=== PATIENT | female | born 1960 | race Caucasian/White ===

== ENCOUNTER 2016-10-13 19:51 | Emergency (ER) | payer SELFPAY ==
[~2016-10-13] VITALS: Ht 165.1 cm; Wt 92.3 kg
[~2016-10-13 19:51] MED LIST: ASPI81TA82 PO; MELO15TA2 PO; NAPR220T95 PO
[2016-10-13 19:53] VITALS: BP 147/85; PULSE 81; RESP 16; TEMP 98.8; O2SAT 95
--- NOTE | 2016-10-13 21:21 | PD ---
HPI . left ear pain worse this today Chief Complaint: ENT Complaint Time Seen by Provider: 21:21 Travel History International Travel<30 days: No Contact w/Intl Traveler<30days: No Traveled to known affect area: No History of Present Illness HPI 55-year-old female with history of recurrent ear infection for over one year here with complaints of left ear pain worsens. Patient says she's been having ear infections for over one year intermittently. She tells me that she woke up this morning and her left ear was hurting more than usual. She has some tenderness over the tragus. She denies any fever or chills. She has no other cold symptoms. She does not have a primary care provider at the moment. PFSH Past Medical History Blood Disorders: No Heart Rhythm Problems: Yes (palpitations (gallops) with low k+) Cancer: No Cardiac Catheterization: Yes (2005 NEGATIVE) Cardiovascular Problems: Yes High Cholesterol: Yes Chest Pain: Yes Congestive Heart Failure: No Diabetes: No Endocrine: No Gastrointestinal Disorders: No Genitourinary: No Headaches: Yes (MIGRAINES) Hypertension: Yes Immune Disorder: No Musculoskeletal: Yes (CHRONIC BACK PAIN) Psychiatric: No Reproductive: No Respiratory: No Migraines: Yes Myocardial Infarction: No : 5 Para: 4 Miscarriage: 0 : 1 Ovarian Cysts: Yes (13 REMOVED OR DRAINED) Past Surgical History AICD: No Appendectomy: Yes Arteriovenous Shunt: No Section: Yes (4) Coronary Artery Bypass Graft: No Eye Surgery: Yes (LASIX ON EYES 2002) Hysterectomy: Yes Insulin Pump: No Joint Replacement: No Pacemaker: No Social History Alcohol Use: No Tobacco Use: Yes (1PPD FOR 30 YEARS) Substance Use: No Allergies-Medications (Allergen,Severity, Reaction): Coded Allergies: No Known Allergies (Verified , 10/13/16) Reported Meds & Prescriptions Reported Meds & Active Scripts Active Ciprofloxacin Otic Drops 0.2% Soln 0.25 Ml LEFT EAR BID 7 Days Mobic (Meloxicam) 15 Mg Tab 15 Mg PO DAILY PRN Reported Aspir-81 (Aspirin) 81 Mg Tab 81 Mg PO DAILY Aleve (Naproxen Sodium) 220 Mg Tab 220 Mg PO BID Review of Systems General / Constitutional: No: Fever Eyes: No: Visual changes HENT: Positive: Earache, No: Headaches Cardiovascular: No: Chest Pain or Discomfort Respiratory: No: Shortness of Breath Gastrointestinal: No: Abdominal Pain Genitourinary: No: Dysuria Musculoskeletal: No: Pain Skin: No Rash Neurologic: No: Weakness Psychiatric: No: Depression Endocrine: No: Polydipsia Hematologic/Lymphatic: No: Easy Bruising Physical Exam Narrative GENERAL: AAO x 3, no acute distress, Well-nourished, well-developed patient. SKIN: Warm and dry. No visible rashes or bruising. HEAD: Normocephalic and atraumatic. EYES: No scleral icterus. No injection or drainage. EOM intact, PERRLA ENT: No nasal drainage noted. Mucous membranes pink. Airway patent. Left TM with erythema, edema, no visible purulence.TM is normal b/l NECK: Supple, trachea midline. No JVD. No lymphadenopathy. CARDIOVASCULAR: Regular rate and rhythm without murmurs, gallops, or rubs. RESPIRATORY: Breath sounds equal bilaterally. No accessory muscle use. No rhonchi or rales. GASTROINTESTINAL: Abdomen soft, non-tender, nondistended. EXTREMITIES: No cyanosis or edema. BACK: Nontender without obvious deformity. No CVA tenderness. PSYCH: AAO x 3, normal affect. Data Data Last Documented VS Vital Signs Date Time Temp Pulse Resp B/P Pulse Ox O2 Delivery O2 Flow Rate FiO2 10/13/16 19:53 98.8 81 16 147/85 95 MDM Medical Decision Making Medical Screen Exam Complete: Yes Emergency Medical Condition: Yes Medical Record Reviewed: Yes Differential Diagnosis left OE, OM, less likely mastoiditis Narrative Course 55-year-old female with history of recurrent ear infection for over one year here with complaints of left ear pain worsens. Patient says she's been having ear infections for over one year intermittently. She tells me that she woke up this morning and her left ear was hurting more than usual. She has some tenderness over the tragus. She denies any fever or chills. She has no other cold symptoms. She does not have a primary care provider at the moment. Patient seen and examined. She appears to have left otitis externa. I explained to her that she will need eardrops for this I do not recommend oral antibiotics. With her history of recurrent ear infections or recommend that she see tear down man as soon as possible. Patient verbalized understanding of instructions, questions were answered, and thanked me for their care. I advised them if their condition worsens, please return to the nearest emergency room for further care. Diagnosis Primary Impression: Otitis externa Qualified Code: H60.312 - Chronic diffuse otitis externa of left ear Patient Instructions: General Instructions Additional Instructions: Please return to emergency department if your symptoms return or worsen. Follow up with your primary care provider. Take medications as prescribed. As we discussed, you will need to see your nose and throat specialist for this recurrent ear infection. Please try to do so as soon as possible. Med/Other Pt SpecificInfo: Prescription(s) given Scripts Ciprofloxacin Otic Drops 0.2% Soln0.25 Ml LEFT EAR BID 7 Days Ref 0 Prov:Penelope Talley MD 10/13/16 Disposition: 01 DISCHARGE HOME Condition: Stable Judy Green Oct 13, 2016 21:21
[2016-10-13] MEDS ORDERED: CIPR0.2S LEFT EAR (21:25)
== END 2016-10-13 21:42 | disposition home or self-care (01) ==
LOC: PHED 19:51 → PHEFT 21:42
DX: H60.312 Diffuse otitis externa, left ear (principal); I10 Essential (primary) hypertension; E78.00 Pure hypercholesterolemia, unspecified; F17.200 Nicotine dependence, unspecified, uncomplicated; Z87.39 Personal history of other diseases of the musculoskeletal system and connective tissue; Z86.79 Personal history of other diseases of the circulatory system; Z86.69 Personal history of other diseases of the nervous system and sense organs
CPT/HCPCS: 99283

== ENCOUNTER 2017-01-13 15:42 | Observation (INO) | payer SELFPAY ==
[~2017-01-13] VITALS: Ht 165.1 cm; Wt 85.0 kg
[~2017-01-13 15:42] MED LIST changes: -ASPI81TA82 PO; +CIPR0.2S LEFT EAR; -MELO15TA2 PO; -NAPR220T95 PO
[2017-01-13 15:43] VITALS: BP 195/93; PULSE 76; RESP 16; TEMP 97.7; O2SAT 100
[2017-01-13 15:58] VITALS: O2SAT 98
[2017-01-13] MEDS ORDERED: SODIUM CHLORIDE 0.9% FLUSH 10 ML FLUSH IVF PRN (16:00)
[2017-01-13] MEDS ORDERED: SODIUM CHLORID 0.9% 500 ML INJ 500 ML IV ONE (16:00)
[2017-01-13] MEDS ORDERED: MORPHINE SULFATE 4 MG/ML INJ IV PUSH ONE (16:00)
[2017-01-13] MEDS ORDERED: ONDANSETRON HCL 4 MG/2 ML VIAL IV PUSH ONE (16:00)
[2017-01-13] MEDS ORDERED: ASPIRIN 81 MG CHEW TAB PO ONE (16:00)
[2017-01-13] MEDS ORDERED: NITROGLYCERIN 0.4 MG SL 25 TABS/BTL SL ONE (16:00)
--- NOTE | 2017-01-13 16:18 | RADRPT ---
EXAM DATE/TIME: 01/13/2017 16:10 [facility] COMPARISON: No previous studies available for comparison. INDICATIONS : Chest pain. MEDICAL HISTORY : Hypertension. Hypercholesterolemia. Smoker. SURGICAL HISTORY : Appendectomy. Cholecystectomy. Cardiac cath. ENCOUNTER: Initial ACUITY: 1 day PAIN SCORE: 7/10 LOCATION: Bilateral chest FINDINGS: The lungs are under aerated with mild prominence to the cardiac silhouette. There is no infiltrate o r failure.. Osseous structures are intact. CONCLUSION: Underated, probably negative. Humza Lopez MD FACR on January 13, 2017 at 16:15 Board Certified Radiologist. This report was verified electronically.
--- NOTE | 2017-01-13 16:20 | PD ---
HPI Chief Complaint: Chest Pain Time Seen by Provider: 15:48 Travel History International Travel<30 days: No Contact w/Intl Traveler<30days: No Traveled to known affect area: No History of Present Illness HPI The patient is a 56-year-old female who presents emergency department for chest pain. The patient states she's had intermittent chest pain for the last 2 weeks which is substernal, dull aching pressure-like, nonradiating, associated with mild shortness of breath. The patient did note one episode of nausea and vomiting at the onset of her symptoms with a small amount of hemoptysis which has resolved. The patient does have a history of CAD with previous stent placement approximately 15 years ago, however, she cannot recall the plate keeper who placed the stent. She does have a history of hypertension , hypokalemia, and CAD, but does not take any medications prescribed by physicians. She does take a baby aspirin daily as well as [id number] herbs for her cholesterol. She denies any history of diabetes, does have a history tobacco use. She denies any exertional symptoms. PFSH Past Medical History Blood Disorders: No Heart Rhythm Problems: Yes (palpitations (gallops) with low k+) Cancer: No Cardiac Catheterization: Yes (2005 NEGATIVE) Cardiovascular Problems: Yes High Cholesterol: Yes Chest Pain: Yes Congestive Heart Failure: No Diabetes: No Endocrine: No Gastrointestinal Disorders: No Genitourinary: No Headaches: Yes (MIGRAINES) Hypertension: Yes Immune Disorder: No Musculoskeletal: Yes (CHRONIC BACK PAIN) Psychiatric: No Reproductive: No Respiratory: No Migraines: Yes Myocardial Infarction: No Tetanus Vaccination: Unknown ?: Not Menopausal: Yes : 5 Para: 4 Miscarriage: 0 : 1 Ovarian Cysts: Yes (13 REMOVED OR DRAINED) Past Surgical History AICD: No Appendectomy: Yes Arteriovenous Shunt: No Section: Yes (4) Cholecystectomy: Yes Coronary Artery Bypass Graft: No Eye Surgery: Yes (LASIX ON EYES 2002) Hysterectomy: Yes Insulin Pump: No Joint Replacement: No Pacemaker: No Family History Family Myocardial Infarction: Yes Social History Alcohol Use: No Tobacco Use: Yes (1PPD FOR 30 YEARS) Substance Use: No Allergies-Medications (Allergen,Severity, Reaction): Coded Allergies: No Known Allergies (Verified , 01/13/17) Reported Meds & Prescriptions Reported Meds & Active Scripts Active Ciprofloxacin Otic Drops 0.2% Soln 0.25 Ml LEFT EAR BID 7 Days Review of Systems Except as stated in HPI: all other systems reviewed are Neg General / Constitutional: No: Fever HENT: No: Lightheadedness Cardiovascular: Positive: Chest Pain or Discomfort, No: Diaphoresis Respiratory: Positive: Shortness of Breath Gastrointestinal: Positive: Nausea, Vomiting, No: Abdominal Pain Musculoskeletal: No: Edema Neurologic: No: Dizziness Physical Exam Narrative GENERAL: Awake, alert, pleasant 56-year-old female who appears her stated age and is in no acute respiratory distress. SKIN: Focused skin assessment warm/dry. HEAD: Atraumatic. Normocephalic. EYES: Pupils equal and round. No scleral icterus. No injection or drainage. ENT: No nasal bleeding or discharge. Breath smells of tobacco. NECK: Trachea midline. No JVD. CARDIOVASCULAR: Regular rate and rhythm. No murmur appreciated. RESPIRATORY: No accessory muscle use. Clear to auscultation. Breath sounds equal bilaterally. GASTROINTESTINAL: Abdomen soft, non-tender, nondistended. No epigastric tenderness. MUSCULOSKELETAL: No obvious deformities. No clubbing. No cyanosis. No edema. NEUROLOGICAL: Awake and alert. No obvious cranial nerve deficits. Motor grossly within normal limits. Normal speech. PSYCHIATRIC: Appropriate mood and affect; insight and judgment normal. Data Data Last Documented VS Vital Signs Date Time Temp Pulse Resp B/P Pulse Ox O2 Delivery O2 Flow Rate FiO2 01/13/17 15:58 98 Room Air 01/13/17 15:56 18 01/13/17 15:43 97.7 76 195/93 Orders Electrocardiogram (01/13/17 ) Ckmb (Isoenzyme) Profile (01/13/17 15:57) Complete Blood Count With Diff (01/13/17 15:57) Comprehensive Metabolic Panel (01/13/17 15:57) Magnesium (Mg) (01/13/17 15:57) Prothrombin Time / Inr (Pt) (01/13/17 15:57) Act Partial Throm Time (Ptt) (01/13/17 15:57) Troponin I (01/13/17 15:57) Lipase (01/13/17 15:57) Chest, Single Ap (01/13/17 15:57) Ecg Monitoring (01/13/17 15:57) Bilateral Bp Monitoring (01/13/17 15:57) Iv Access Insert/Monitor (01/13/17 15:57) Oximetry (01/13/17 15:57) Oxygen Administration (01/13/17 15:57) Aspirin Chew (Aspirin Chew) (01/13/17 16:00) Morphine Inj (Morphine Inj) (01/13/17 16:00) Sodium Chloride 0.9% Flush (Ns Flush) (01/13/17 16:00) Nitroglycerin Sl (Nitrostat Sl) (01/13/17 16:00) Sodium Chlorid 0.9% 500 Ml Inj (Ns 500 M (01/13/17 16:00) Ondansetron Inj (Zofran Inj) (01/13/17 16:00) Labs Laboratory Tests Test 01/13/17 16:10 White Blood Count 10.8 TH/MM3 Red Blood Count 4.74 MIL/MM3 Hemoglobin 14.8 GM/DL Hematocrit 43.0 % Mean Corpuscular Volume 90.8 FL Mean Corpuscular Hemoglobin 31.2 PG Mean Corpuscular Hemoglobin 34.4 % Concent Red Cell Distribution Width 14.5 % Platelet Count 267 TH/MM3 Mean Platelet Volume 9.0 FL Neutrophils (%) (Auto) 60.5 % Lymphocytes (%) (Auto) 28.4 % Monocytes (%) (Auto) 7.1 % Eosinophils (%) (Auto) 3.4 % Basophils (%) (Auto) 0.6 % Neutrophils # (Auto) 6.5 TH/MM3 Lymphocytes # (Auto) 3.1 TH/MM3 Monocytes # (Auto) 0.8 TH/MM3 Eosinophils # (Auto) 0.4 TH/MM3 Basophils # (Auto) 0.1 TH/MM3 CBC Comment DIFF FINAL Differential Comment Prothrombin Time 10.3 SEC Prothromb Time International 0.9 RATIO Ratio Activated Partial 25.3 SEC Thromboplast Time Sodium Level 143 MEQ/L Potassium Level 3.7 MEQ/L Chloride Level 111 MEQ/L Carbon Dioxide Level 26.5 MEQ/L Anion Gap 6 MEQ/L Blood Urea Nitrogen 23 MG/DL Creatinine 0.78 MG/DL Estimat Glomerular Filtration 77 ML/MIN Rate Random Glucose 85 MG/DL Calcium Level 9.0 MG/DL Magnesium Level 1.9 MG/DL Total Bilirubin 0.3 MG/DL Aspartate Amino Transf 14 U/L (AST/SGOT) Alanine Aminotransferase 16 U/L (ALT/SGPT) Alkaline Phosphatase 75 U/L Total Creatine Kinase 63 U/L Troponin I LESS THAN 0.02 NG/ML Total Protein 7.1 GM/DL Albumin 3.7 GM/DL Lipase 186 U/L [facility] Medical Decision Making Medical Screen Exam Complete: Yes Emergency Medical Condition: Yes Medical Record Reviewed: Yes Interpretation(s) EKG reveals normal sinus rhythm with a rate of 61. No ischemic changes or ectopy noted. Laboratory Tests Test 01/13/17 16:10 White Blood Count 10.8 TH/MM3 Red Blood Count 4.74 MIL/MM3 Hemoglobin 14.8 GM/DL Hematocrit 43.0 % Mean Corpuscular Volume 90.8 FL Mean Corpuscular Hemoglobin 31.2 PG Mean Corpuscular Hemoglobin 34.4 % Concent Red Cell Distribution Width 14.5 % Platelet Count 267 TH/MM3 Mean Platelet Volume 9.0 FL Neutrophils (%) (Auto) 60.5 % Lymphocytes (%) (Auto) 28.4 % Monocytes (%) (Auto) 7.1 % Eosinophils (%) (Auto) 3.4 % Basophils (%) (Auto) 0.6 % Neutrophils # (Auto) 6.5 TH/MM3 Lymphocytes # (Auto) 3.1 TH/MM3 Monocytes # (Auto) 0.8 TH/MM3 Eosinophils # (Auto) 0.4 TH/MM3 Basophils # (Auto) 0.1 TH/MM3 CBC Comment DIFF FINAL Differential Comment Prothrombin Time 10.3 SEC Prothromb Time International 0.9 RATIO Ratio Activated Partial 25.3 SEC Thromboplast Time Sodium Level 143 MEQ/L Potassium Level 3.7 MEQ/L Chloride Level 111 MEQ/L Carbon Dioxide Level 26.5 MEQ/L Anion Gap 6 MEQ/L Blood Urea Nitrogen 23 MG/DL Creatinine 0.78 MG/DL Estimat Glomerular Filtration 77 ML/MIN Rate Random Glucose 85 MG/DL Calcium Level 9.0 MG/DL Magnesium Level 1.9 MG/DL Total Bilirubin 0.3 MG/DL Aspartate Amino Transf 14 U/L (AST/SGOT) Alanine Aminotransferase 16 U/L (ALT/SGPT) Alkaline Phosphatase 75 U/L Total Creatine Kinase 63 U/L Troponin I LESS THAN 0.02 NG/ML Total Protein 7.1 GM/DL Albumin 3.7 GM/DL Lipase 186 U/L Differential Diagnosis Differential diagnosis includes acute coronary syndrome, GERD, esophageal spasm , aortic dissection, pulmonary embolism, pneumonia, lung cancer, gastritis, peptic ulcer disease, pancreatitis. Narrative Course IV was established, labs are drawn and sent, and the patient was placed on cardiac telemetry monitoring and continuous pulse oximetry monitoring. EKG was ordered and interpreted. Chest x-ray was obtained. The patient received aspirin, morphine, nitroglycerin sublingual, Zofran, and IV fluids. Chest x- rays unremarkable. Initial troponin and CPK are within normal limits. Patient will be 23 hour observation to the chest pain center for serial cardiac enzymes and further evaluation by cardiology. Physician Communication Physician Communication The patient will be 23 hour observation to the chest pain center for serial cardiac enzymes and further evaluation by cardiology. Diagnosis Primary Impression: Chest pain Qualified Code: R07.9 - Chest pain, unspecified type Admitting Information Admitting Physician Requests: Observation Condition: Stable Jimy Holley MD Jan 13, 2017 16:20
[2017-01-13 16:21] LABS: AUTOMATED NEUTROPHIL # 6.5 TH/MM3 (1.8-7.7); BASOPHIL # 0.1 TH/MM3 (0-0.2); BASOPHIL % 0.6 % (0.0-2.0); EOSINOPHIL # 0.4 TH/MM3 (0-0.4); EOSINOPHIL % 3.4 % (0.0-4.0); HEMO FLAGS DIFF FINAL; LYMPH % 28.4 % (9.0-44.0); LYMPHOCYTE # 3.1 TH/MM3 (1.0-4.8); MEAN CELL VOLUME 90.8 FL (80.0-100.0); MEAN CORPUSCULAR HEMOGLOBIN 31.2 PG (27.0-34.0); MEAN CORPUSCULAR HGB CONC 34.4 % (32.0-36.0); MONO % 7.1 % (0.0-8.0); NEUT % 60.5 % (16.0-70.0); PLATELET COUNT 267 TH/MM3 (150-450); RED BLOOD COUNT 4.74 MIL/MM3 (4.00-5.30); RED CELL DISTRIBUTION WIDTH 14.5 % (11.6-17.2); WHITE BLOOD COUNT 10.8 TH/MM3 (4.0-11.0)
[2017-01-13 16:35] LABS: APTT (PATIENT) 25.3 SEC (24.3-30.1); INTERNATIONAL NORMALIZED RATIO 0.9 RATIO; PROTHROMBIN TIME - PATIENT 10.3 SEC (9.8-11.6)
[2017-01-13 16:38] LABS: ANION GAP 6 MEQ/L (5-15); AST (GOT) 14 U/L (15-37); BICARBONATE 26.5 MEQ/L (21.0-32.0); BLOOD UREA NITROGEN 23 MG/DL (7-18); CHLORIDE 111 MEQ/L (98-107); GLOMERULAR FILTRATION RATE 77 ML/MIN (>89); MAGNESIUM 1.9 MG/DL (1.5-2.5); POTASSIUM 3.7 MEQ/L (3.5-5.1); SODIUM (NA) 143 MEQ/L (136-145)
[2017-01-13 16:43] LABS: ALKALINE PHOSPHATASE 75 U/L (45-117); ALT (GPT) 16 U/L (10-53); TOTAL BILIRUBIN ADULT 0.3 MG/DL (0.2-1.0)
[2017-01-13 17:02] LABS: CREATINE KINASE 63 U/L (26-192)
[2017-01-13] MEDS ORDERED: ALUMINUM/MAGNESIUM/SIMETH 30 ML CUP PO ONE (17:30)
[2017-01-13] MEDS ORDERED: LIDOCAINE VISCOUS 2% SOLN 15 ML UDC PO ONE (17:30)
[2017-01-13] MEDS ORDERED: ONDANSETRON HCL 4 MG/2 ML VIAL IV PRN (18:30)
[2017-01-13] MEDS ORDERED: ACETAMINOPHEN 500 MG CPLT PO PRN (18:30)
[2017-01-13] MEDS ORDERED: MORPHINE SULFATE 4 MG/ML INJ IV PRN (18:30)
[2017-01-13] MEDS ORDERED: SODIUM CHLORIDE 0.9% FLUSH 10 ML FLUSH IV FLUSH PRN (18:30)
[2017-01-13] MEDS ORDERED: NITROGLYCERIN 0.4 MG SL 25 TABS/BTL SL PRN (18:30)
[2017-01-13 19:08] VITALS: BP 167/75; PULSE 71; RESP 18; O2SAT 97
[2017-01-13 20:08] VITALS: BP 168/81; PULSE 68; RESP 18; TEMP 98.6; O2SAT 96
[2017-01-13] MEDS: SODIUM CHLORIDE 0.9% FLUSH 10 ML FLUSH IV FLUSH SCH (20:23)
[2017-01-13 20:32] LABS: CREATINE KINASE 60 U/L (26-192)
[2017-01-13] MEDS: ACETAMINOPHEN/HYDROcodone 325 MG/7.5 MG TAB PO PRN (21:14)
[2017-01-13 22:58] LABS: CREATINE KINASE 47 U/L (26-192)
[2017-01-13 23:46] VITALS: BP 170/91; PULSE 64; RESP 16; TEMP 97.5; O2SAT 96
[2017-01-14] VITALS (13 sets, daily range): BP systolic 126–184; BP diastolic 68–82; PULSE 45–96; RESP 14–20; TEMP 97.7–98.2; O2SAT 93–96
[2017-01-14] MEDS: ACETAMINOPHEN/HYDROcodone 325 MG/7.5 MG TAB PO PRN ×3 (07:50→23:26)
[2017-01-14] MEDS: SODIUM CHLORIDE 0.9% FLUSH 10 ML FLUSH IV FLUSH SCH ×2 (07:50→21:07)
[2017-01-14] MEDS: ASPIRIN 325 MG TAB PO SCH (07:50)
--- NOTE | 2017-01-14 08:14 | HHI.HP ---
HPI Primary Care Physician No Primary Care Physician Chief Complaint Substernal pain History of Present Illness 56-year-old female with history of hypertension, hyperlipidemia, and current smoker presents to the emergency room for further evaluation of substernal chest pain. Onset 2 weeks ago. 2 weeks ago while eating a pot roast, states food was stuck in her chest. Describes episode as unable to breathe with severe pain until she eventually vomited. Reports vomiting 2 cups of blood followed by clear phlegm. After coughing phlegm she could breathe again. Since that time, constant substernal chest pain. Pain has never gone away completely waxing and waning in intensity. Describes discomfort as something stuck in substernal area. No dysphasia. No change in appetite. No change in bowel movements, reports chronic constipation. No history of Gerd expect during pregnancies. No particular movement or position makes pain better or worse. Does not hurt to take a deep breath. Denies similar pain in the past. Reports chronic pain takes 2 Aleve twice daily. Reports EGD 20+ years ago due to throwing up blood stating EGD was normal. Does not have coronary artery disease with previous stents placed which differs from the emergency room note. History of SVT with EP study in 2005. No recurrence of SVT since that time. Reports she was confused regarding her cardiac history when she spoke to YOSELIN López. Review of Systems General: No fatigue,weakness, fever, chills, recent illness, or change in appetite. HEENT: History of migraines, reports daily headache 6 weeks. Take Goody's powder daily. No no vision changes. no nasal congestion or drainage. CV: As stated above. No palpitations or dizziness. History of ablation-11 years ago. No personal history of coronary artery disease. RESP: No SOB, cough, wheeze, or history of asthma. GI: No nausea, vomiting, bowel changes, pain, distention, melena, or blood in the stool. Chronic constipation. No unintentional weight gain or weight loss : No dysuria, urgency, frequency, hematuria, or history of kidney stones. EXT: No lower leg edema, no paraesthesias. MS: Chronic back pain. States she can only ambulate short distances due to back pain. Takes 2 Aleve twice daily. Reports DDD and bulging disks with nerve involvement. No change in ROM NEURO: No difficulty with balance, LOC, motor/sensory deficits PSYCH: No anxiety, depression SKIN: No rashes, no concerning lesions Past Family Social History Allergies: Coded Allergies: No Known Allergies (Verified , 01/13/17) Past Medical History Hypertension, hyperlipidemia, SVT Past Surgical History Cholecystectomy, hemorrhoidectomy Reported Medications Active No Active Prescriptions or Reported Medications Red yeast rice Herbal medication for BPname unknown. Active Ordered Medications Current Medications Medications (Trade) Dose Ordered Sig/Regina Route Start Time Stop Time Status Last Admin (Tylenol) 500 mg Q4H PRN PO 01/13/17 18:30 ([place] 7.5-325 Mg) 1 tab Q4H PRN PO 01/13/17 18:30 01/14/17 07:50 (Morphine Inj) 2 mg Q4H PRN IV 01/13/17 18:30 (Zofran Inj) 4 mg Q6H PRN IV 01/13/17 18:30 (Nitrostat Sl) 0.4 mg Q5M PRN SL 01/13/17 18:30 (Aspirin) 325 mg DAILY PO 01/14/17 09:00 01/14/17 07:50 Family History Unknown. Has not spoke with family in over 20 years Social History Known hypertension and hyperlipidemia. Has not taken medication for 6 years due to lack of insurance. No known diabetes or personal coronary artery disease. Lifelong smoker 1 pack daily. Denies any alcohol or recreational drugs. Sedentary lifestyle. Unemployed, applying for disability. Past cardiac testing No recent stress testing. 12/03/05 EP study (Dr. Mcgill)-Conclusion-successful electrophysiology study, AV nodule rear-entry tachycardia, mapping and radiofrequency ablation. 11/30/05 [id number]-[id number]-Cr pericardial effusion. LV function sustained, EF 65%. Trivial tricuspid encourage rotation 12/11/06 Lexiscanno evidence of stress-induced ischemia. Ejection fraction 75%. Physical Exam Vital Signs Vital Signs Date Time Temp Pulse Resp B/P Pulse Ox O2 Delivery O2 Flow Rate FiO2 01/14/17 08:11 97.8 60 18 164/80 95 01/14/17 08:00 49 01/14/17 03:56 97.7 55 16 155/68 93 01/14/17 02:00 94 21 01/13/17 23:46 97.5 64 16 170/91 96 01/13/17 20:08 98.6 68 18 168/81 96 01/13/17 19:08 71 18 167/75 97 Room Air 01/13/17 16:20 18 01/13/17 16:15 18 01/13/17 15:58 98 Room Air 01/13/17 15:56 18 99 01/13/17 15:43 97.7 76 16 195/93 100 Physical Exam GENERAL: Alert WN, WD, NAD, pleasant, female who appears older than stated age HEAD: NC, AT EYES: Sclera clear, conjunctiva without injection, pupils equal and round ENT: Mucous membranes pink and moist, no nasal discharge or bleeding NECK: Supple, no masses, trachea midline CV: Regular bradycardic rate, without murmur, rub, gallop, no JVD, S1-S2 no S3- S4. No carotid or femoral bruits. RESP: Clear lungs throughout bilateral, no crackles, wheeze, rhonchi, symmetrical chest rise, nonlabored, able to speak in full sentences ABD: Soft, NT, ND, no masses, positive bowel tones, negative Kidd's sign BACK: No CVAT, no scoliosis EXT: Pulses +24, no dependent edema MS: Normal tone 4 extremities, nontender, no obvious deformities, full range of motion NEURO: CN II through CN XII grossly intact, motor strength 5/5, gait WNL PSYCH: A+O 3, pleasant affect, appropriate speech, appropriate mood and affect , insight and judgment SKIN: Normal turgor, normal texture, no lesions, no rashes, brisk cap refill, even hair distribution Laboratory Laboratory Tests Test 01/13/17 01/13/17 01/13/17 16:10 19:37 22:22 White Blood Count 10.8 Red Blood Count 4.74 Hemoglobin 14.8 Hematocrit 43.0 Mean Corpuscular Volume 90.8 Mean Corpuscular Hemoglobin 31.2 Mean Corpuscular Hemoglobin 34.4 Concent Red Cell Distribution Width 14.5 Platelet Count 267 Mean Platelet Volume 9.0 Neutrophils (%) (Auto) 60.5 Lymphocytes (%) (Auto) 28.4 Monocytes (%) (Auto) 7.1 Eosinophils (%) (Auto) 3.4 Basophils (%) (Auto) 0.6 Neutrophils # (Auto) 6.5 Lymphocytes # (Auto) 3.1 Monocytes # (Auto) 0.8 Eosinophils # (Auto) 0.4 Basophils # (Auto) 0.1 CBC Comment DIFF FINAL Differential Comment Prothrombin Time 10.3 Prothromb Time International 0.9 Ratio Activated Partial 25.3 Thromboplast Time Sodium Level 143 Potassium Level 3.7 Chloride Level 111 Carbon Dioxide Level 26.5 Anion Gap 6 Blood Urea Nitrogen 23 Creatinine 0.78 Estimat Glomerular Filtration 77 Rate Random Glucose 85 Calcium Level 9.0 Magnesium Level 1.9 Total Bilirubin 0.3 Aspartate Amino Transf 14 (AST/SGOT) Alanine Aminotransferase 16 (ALT/SGPT) Alkaline Phosphatase 75 Total Creatine Kinase 63 60 47 Troponin I LESS THAN 0.02 LESS THAN 0.02 LESS THAN 0.02 Total Protein 7.1 Albumin 3.7 Lipase 186 Result Diagram: 01/13/17 1610 01/13/17 1610 Imaging Last Impressions Chest X-Ray 01/13/17 1557 Signed Impressions: Service Date/Time: Friday, January 13, 2017 16:10 - CONCLUSION: Underated, probably negative. Humza Lopez MD FACR Course EKGs Normal sinus bradycardia, normal axis, no ST or T-segment changes Assessment and Plan Assessment and Plan #1 Chest painadmitted to chest pain center. Ruled out with 3 sets of EKGs, cardiac enzymes, and monitored overnight. Seen and evaluated by Dr. Kelvin Turk. Chest discomfort atypical likely GI. Will consult GI for further evaluation. No further cardiac testing required. #2 Hypertensionlisinopril 10 mg daily. Discussed importance of tight blood pressure control, following a low sodium diet, and medication compliance. Establish with a primary care provider for follow-up. #3 Hyperlipidemia-discussed in length importance of cholesterol management. Once established with a PCP follow-up with a lipid panel. #4 Tobacco use-strongly encouraged and stressed importance of tobacco sensation. Discussed and counseled patient to quit smoking. #5 GERDconsult GI for further recommendation and possible EGD. GI cocktail provided emergency room. Education provided on terminologist use of NSAIDs and possible ill effects on stomach. #6 Chronic headaches/migrainescontinue pain medications initiated in emergency room. Once again patient encouraged to establish with a primary care provider for her chronic medical needs. Case management consult placed for possible admittance to [facility] for preventative care and medical management. Etelvina Nixon Jan 14, 2017 08:14 Etelvina Nixon Jan 14, 2017 08:14
--- NOTE | 2017-01-14 09:35 | PD.CONS ---
HPI History of Present Illness This is a 56 year old female patient complaining of two weeks of epigastric pain , moderately severe, pressure like, without radiation. No assiciated SOB or chills. Started with dysphagia for meat that she vomited along with some blood. Reports regular mild dysphagia for solid food. No heartburn. Had EGD in recent years no diagnosis. History of CAD with stent but troponins are negative and symptoms are unlike her cardiac sx. ROS: headaches, no rash, no sore throat, no earache. No fevers, no diarrhea. Constipation. No leg pains but has cold legs always cold. Otherwise complete ros is negative.[]. PFSH Past Medical History CAD Stent 11 years ago. Colonoscopy 3 years ago normal Past Surgical History cholecystectomy 2 years ago terrible pain. Unlike symptoms currently Appy Coded Allergies: No Known Allergies (Verified , 01/13/17) Medications Current Medications Medications (Trade) Dose Ordered Sig/Regina Route Start Time Stop Time Status Last Admin (NS Flush) 2 ml UNSCH PRN IV FLUSH 01/13/17 18:30 (NS Flush) 2 ml BID IV FLUSH 01/13/17 21:00 01/14/17 07:50 (Tylenol) 500 mg Q4H PRN PO 01/13/17 18:30 (Randolph 7.5-325 Mg) 1 tab Q4H PRN PO 01/13/17 18:30 01/14/17 07:50 (Morphine Inj) 2 mg Q4H PRN IV 01/13/17 18:30 (Zofran Inj) 4 mg Q6H PRN IV 01/13/17 18:30 (Nitrostat Sl) 0.4 mg Q5M PRN SL 01/13/17 18:30 (Aspirin) 325 mg DAILY PO 01/14/17 09:00 01/14/17 07:50 Family History CAD Social History Smokes 1 PPD. No alcohol or drugs GI Exam Vitals I&O Vital Signs Date Time Temp Pulse Resp B/P Pulse Ox O2 Delivery O2 Flow Rate FiO2 01/14/17 08:11 97.8 60 18 164/80 95 01/14/17 08:00 49 01/14/17 07:54 94 21 01/14/17 03:56 97.7 55 16 155/68 93 01/14/17 02:00 94 21 01/13/17 23:46 97.5 64 16 170/91 96 01/13/17 20:08 98.6 68 18 168/81 96 01/13/17 19:08 71 18 167/75 97 Room Air 01/13/17 16:20 18 01/13/17 16:15 18 01/13/17 15:58 98 Room Air 01/13/17 15:56 18 99 01/13/17 15:43 97.7 76 16 195/93 100 Laboratory Test 01/13/17 01/13/17 01/13/17 16:10 19:37 22:22 White Blood Count 10.8 TH/MM3 Red Blood Count 4.74 MIL/MM3 Hemoglobin 14.8 GM/DL Hematocrit 43.0 % Mean Corpuscular Volume 90.8 FL Mean Corpuscular Hemoglobin 31.2 PG Mean Corpuscular Hemoglobin 34.4 % Concent Red Cell Distribution Width 14.5 % Platelet Count 267 TH/MM3 Mean Platelet Volume 9.0 FL Neutrophils (%) (Auto) 60.5 % Lymphocytes (%) (Auto) 28.4 % Monocytes (%) (Auto) 7.1 % Eosinophils (%) (Auto) 3.4 % Basophils (%) (Auto) 0.6 % Neutrophils # (Auto) 6.5 TH/MM3 Lymphocytes # (Auto) 3.1 TH/MM3 Monocytes # (Auto) 0.8 TH/MM3 Eosinophils # (Auto) 0.4 TH/MM3 Basophils # (Auto) 0.1 TH/MM3 CBC Comment DIFF FINAL Differential Comment Prothrombin Time 10.3 SEC Prothromb Time International 0.9 RATIO Ratio Activated Partial 25.3 SEC Thromboplast Time Sodium Level 143 MEQ/L Potassium Level 3.7 MEQ/L Chloride Level 111 MEQ/L Carbon Dioxide Level 26.5 MEQ/L Anion Gap 6 MEQ/L Blood Urea Nitrogen 23 MG/DL Creatinine 0.78 MG/DL Estimat Glomerular Filtration 77 ML/MIN Rate Random Glucose 85 MG/DL Calcium Level 9.0 MG/DL Magnesium Level 1.9 MG/DL Total Bilirubin 0.3 MG/DL Aspartate Amino Transf 14 U/L (AST/SGOT) Alanine Aminotransferase 16 U/L (ALT/SGPT) Alkaline Phosphatase 75 U/L Total Creatine Kinase 63 U/L 60 U/L 47 U/L Troponin I LESS THAN 0.02 LESS THAN 0.02 LESS THAN 0.02 NG/ML NG/ML NG/ML Total Protein 7.1 GM/DL Albumin 3.7 GM/DL Lipase 186 U/L Physical Examination HEENT: Pupils round and reactive to light; normocephalic; atraumatic; no jaundice. Throat is clear. NECK: Neck is supple, no JVD, no lymphadenopathy. CHEST: Chest is clear to auscultation and percussion. CARDIAC: Regular rate and rhythm with no murmur gallop or rubs. ABDOMEN: Soft, nondistended, nontender; no hepatosplenomegaly; bowel sounds are present in all four quadrants. EXTREMITIES: No clubbing, cyanosis, or edema. SKIN: Normal; no rash; no jaundice. GARNETT MACHINE OPERATOR: No focal deficits; alert and oriented times three. Assessment and Plan Plan Impression: GERD with dysphagia Plan: EGD with possible dilatation tomorrow PPI protonix 40 IV bid Full liquid diet today NPO after midnight He Ball MD Jan 14, 2017 09:35
[2017-01-14] MEDS: LISINOPRIL 10 MG TAB PO SCH (11:17)
[2017-01-14] MEDS: PANTOPRAZOLE SODIUM 40 MG VIAL IV PUSH SCH ×2 (11:17→21:07)
[2017-01-14] MEDS ORDERED: cloNIDine HCL 0.1 MG TAB PO PRN (15:00)
[2017-01-15] VITALS (7 sets, daily range): BP systolic 140–160; BP diastolic 77–88; PULSE 48–55; RESP 16–20; TEMP 98–98.6; O2SAT 93–97
--- NOTE | 2017-01-15 07:28 | EKG ---
Date Performed: 01/13/2017 Time Performed: 22:04:44 PTAGE: 56 years EKG: SINUS BRADYCARDIA BORDERLINE ECG PREVIOUS TRACING : 01/13/2017 19.14 Since previous tracing, no significant change noted DOCTOR: Kelvin Turk Interpretating Date/Time 01/15/2017 07:26:52
--- NOTE | 2017-01-15 07:29 | EKG ---
Date Performed: 01/13/2017 Time Performed: 19:14:24 PTAGE: 56 years EKG: SINUS BRADYCARDIA WITH SINUS ARRHYTHMIA BORDERLINE ECG PREVIOUS TRACING : 01/13/2017 15.58 Since previous tracing, no significant change noted DOCTOR: Kelvin Turk Interpretating Date/Time 01/15/2017 07:27:56
--- NOTE | 2017-01-15 07:30 | EKG ---
Date Performed: 01/13/2017 Time Performed: 15:58:27 PTAGE: 56 years EKG: Sinus rhythm NORMAL ECG PREVIOUS TRACING : 05/05/2009 11.12 Since previous tracing, no significant change noted DOCTOR: Kelvin Turk Interpretating Date/Time 01/15/2017 07:28:18
[2017-01-15] MEDS: LISINOPRIL 10 MG TAB PO SCH (08:07)
[2017-01-15] MEDS: PANTOPRAZOLE SODIUM 40 MG VIAL IV PUSH SCH (08:08)
[2017-01-15] MEDS: ACETAMINOPHEN/HYDROcodone 325 MG/7.5 MG TAB PO PRN (08:08)
[2017-01-15] MEDS: ASPIRIN 325 MG TAB PO SCH (08:11)
[2017-01-15] MEDS: SODIUM CHLORIDE 0.9% FLUSH 10 ML FLUSH IV FLUSH SCH (08:12)
--- NOTE | 2017-01-15 09:12 | PD.CARD.PN ---
Subjective Subjective Remarks Continues to complain of substernal discomfort described as "something stuck in my chest." No complaints overnight, tolerated clears. No issues overnight per nursing. Objective Vital Signs / I&O Vital Signs Date Time Temp Pulse Resp B/P Pulse Ox O2 Delivery O2 Flow Rate FiO2 01/15/17 07:30 98.0 55 20 151/88 97 01/15/17 07:13 94 21 01/15/17 04:19 48 01/15/17 04:11 98.5 54 20 140/82 94 01/15/17 00:12 48 01/14/17 23:16 97.7 52 20 157/80 93 01/14/17 20:04 52 01/14/17 19:43 97.8 57 16 126/79 93 01/14/17 19:40 95 01/14/17 15:50 98.2 63 18 158/76 96 01/14/17 14:53 151/78 01/14/17 13:00 97.7 96 14 184/82 96 01/14/17 12:00 45 I/O 01/14/17 01/14/17 01/14/17 01/15/17 01/15/17 01/15/17 07:00 15:00 23:00 07:00 15:00 23:00 Intake Total 1280 ml Output Total 800 ml Balance 480 ml Intake Oral 1280 ml Output Urine Total 800 ml Physical Exam Gen: A+Ox3, NAD CV: RRR, w/o murmur S1, S2 Resp: clear lungs throughout, non-labored Abd: soft, NT, +bs Neuro: gait normal Assessment and Plan Assessment and Plan EGD scheduled this am. Further disposition to follow recommendations from Etelvina Jackson Jan 15, 2017 09:12
[2017-01-15] MEDS ORDERED: LACTATED RINGER'S 1,000 ML BAG IV ONE (09:45)
[2017-01-15] MEDS ORDERED: PROPOFOL 200 MG/20 ML AMP IV ONE (10:06)
--- NOTE | 2017-01-15 10:36 | HHI.GIFU ---
Subjective Remarks Immediate postop note: EGD with esophageal dilatation over guidewire Indication: Chest pain, dysphagia Meds: MAC Findings; Esophagus apparent distal stricture. Dilated to 15mm and 16mm. Savary Relook showed dilated distal stricture. No apparent complication Stomach: normal Duodenum: normal Objective Vitals I&O Vital Signs Date Time Temp Pulse Resp B/P Pulse Ox O2 Delivery O2 Flow Rate FiO2 01/15/17 09:40 98.0 55 20 151/88 97 01/15/17 09:08 18 01/15/17 07:30 98.0 55 20 151/88 97 01/15/17 07:13 94 21 01/15/17 04:19 48 01/15/17 04:11 98.5 54 20 140/82 94 01/15/17 00:12 48 01/14/17 23:16 97.7 52 20 157/80 93 01/14/17 20:04 52 01/14/17 19:43 97.8 57 16 126/79 93 01/14/17 19:40 95 01/14/17 15:50 98.2 63 18 158/76 96 01/14/17 14:53 151/78 01/14/17 13:00 97.7 96 14 184/82 96 01/14/17 12:00 45 I/O 01/14/17 01/14/17 01/14/17 01/15/17 01/15/17 01/15/17 07:00 15:00 23:00 07:00 15:00 23:00 Intake Total 1280 ml Output Total 800 ml Balance 480 ml Intake Oral 1280 ml Output Urine Total 800 ml Physical Exam HEENT: Pupils round and reactive to light; normocephalic; atraumatic; no jaundice. Throat is clear. NECK: Neck is supple, no JVD, no lymphadenopathy. CHEST: Chest is clear to auscultation and percussion. CARDIAC: Regular rate and rhythm with no murmur gallop or rubs. ABDOMEN: Soft, nondistended, nontender; no hepatosplenomegaly; bowel sounds are present in all four quadrants. EXTREMITIES: No clubbing, cyanosis, or edema. SKIN: Normal; no rash; no jaundice. PROMOTION SPECIALIST: No focal deficits; alert and oriented times three. Assessment and Plan Plan Impression: GERD with dysphagia - EGD and dilatation over guidewire to 16mm shows distal stricture. No complication. Gerd present. Plan: Advance to regular diet. PPI Daily Protonix 40mg daily Followup in [facility] office in 2 weeks. Needs repeat EGD with further dilatation to 17,18mm and biopsy distal esophagus. Stable for discharge today. He Ball MD Jan 15, 2017 10:36
[2017-01-15] MEDS ORDERED: PROT40TA PO (11:43)
--- NOTE | 2017-01-15 11:44 | HHI.DCPOC ---
Discharge Care Plan Diagnosis: (1) Esophageal dilatation (2) GERD (gastroesophageal reflux disease) (3) Hypertension (4) Tobacco abuse Goals to Promote Your Health * To prevent worsening of your condition and complications * To maintain your health at the optimal level Directions to Meet Your Goals Take your medications as prescribed Follow your dietary instruction Follow activity as directed Keep your appointments as scheduled Take your immunizations and boosters as scheduled If your symptoms worsen call your PCP, if no PCP go to Urgent Care Center or Emergency Room Smoking is Dangerous to Your Health. Avoid second hand smoke Call the 24-hour hour crisis hotline for domestic abuse at Etelvina Nixon [facility] Jan 15, 2017 11:44
[2017-01-15] MEDS ORDERED: LISI10TA3 PO (11:51)
--- NOTE | 2017-01-15 12:47 | MR ---
cc: KELVIN TURK MD, HAROLD H. MD DATE OF PROCEDURE 01/15/2017 PROCEDURE Esophagogastroduodenoscopy with esophageal dilatation over guidewire. INDICATION Chest pain and dysphagia. REQUESTING PHYSICIAN Referred by Kelvin Turk MD PROCEDURE After informed consent was obtained, the patient was placed in the left side down position. She was sedated by the anesthesia service. After adequate sedation was achieved, the Pentax video gastroscope was inserted in the oropharynx and advanced through the esophagus, stomach and duodenum. It was then slowly withdrawn examining the mucosal surfaces carefully. A retroflex examination was performed in the fundus and cardia. The scope was then straightened and a guidewire was left in place as the scope was slowly withdrawn. Over the guidewire a 15-mm Savary dilator was passed down through the esophagus into the stomach. It was then removed and a 16-mm dilator was passed down through the esophagus into the stomach. The dilator and guidewire were then removed together. A re-look examination was then performed showing that the distal stricture had been dilated. There was minimal blood present. There was no apparent complication. The scope was then withdrawn and the procedure was terminated. She tolerated the procedure well and was returned to the recovery area in good condition. FINDINGS 1. The esophagus showed an apparent distal stricture. This was dilated to 15 and 16-mm with Savary dilators. A re-look examination showed a dilated distal stricture without any apparent complication. 2. The stomach was normal. 3. The duodenum was normal. IMPRESSION 1. Gastroesophageal reflux disease. 2. Distal esophageal stricture dilated to 16-mm. RECOMMENDATIONS 1. The patient should take Protonix 40 mg daily and should follow up in the office at 2 weeks. 2. She can have a regular diet. She should continue to chew her food well. 3. She may be discharged to home at this point. He Ball MD [facility] /11:34 AM /12:41 PM
== END 2017-01-15 13:36 | disposition home or self-care (01) ==
LOC: NEPE 15:42 → NEDA 17:25 → UNDODISOB 17:28 → NEPFCDU 19:59
PROVIDERS: ADMIT Internal Medicine Cardiovascular Disease; ATTEND Internal Medicine Cardiovascular Disease
DX: R07.89 Other chest pain (principal); R13.10 Dysphagia, unspecified; K22.2 Esophageal obstruction; R06.02 Shortness of breath; R00.1 Bradycardia, unspecified; K92.0 Hematemesis; I25.10 Atherosclerotic heart disease of native coronary artery without angina pectoris; I10 Essential (primary) hypertension; I49.8 Other specified cardiac arrhythmias; E78.5 Hyperlipidemia, unspecified; E78.00 Pure hypercholesterolemia, unspecified; K21.9 Gastro-esophageal reflux disease without esophagitis; G43.909 Migraine, unspecified, not intractable, without status migrainosus; G89.29 Other chronic pain; F17.200 Nicotine dependence, unspecified, uncomplicated; Z79.899 Other long term (current) drug therapy; Z95.5 Presence of coronary angioplasty implant and graft
CPT/HCPCS: 00740; 43248; 71010; 80053; 82550; 83690; 83735; 84484; 85025; 85610; 85730; 93005; 96361; 96374; 96375; 99285; C1769; C9113; G0378; J2270; J2405; J7040; J7120

== ENCOUNTER 2017-04-10 09:57 | Observation (INO) | payer MEDICARE ==
[2017-04-10] VITALS (11 sets, daily range): BP systolic 131–172; BP diastolic 72–94; PULSE 61–78; RESP 12–22; TEMP 97.9–99; O2SAT 97–100
[~2017-04-10] VITALS: Ht 165.1 cm; Wt 93.0 kg
[~2017-04-10 09:57] MED LIST changes: -CIPR0.2S LEFT EAR; +LISI10TA3 PO; +PROT40TA PO
[2017-04-10] MEDS ORDERED: RED1CAP4 PO (10:40)
[2017-04-10] MEDS ORDERED: COQ-30CA2 PO (10:40)
[2017-04-10] MEDS ORDERED: ASPI1POW6 PO (10:40)
[2017-04-10] MEDS ORDERED: SODIUM CHLORIDE 0.9% FLUSH 10 ML FLUSH IVF PRN (11:00)
--- NOTE | 2017-04-10 11:15 | PD ---
HPI Chief Complaint: Chest Pain Time Seen by Provider: 11:08 Travel History International Travel<30 days: No Contact w/Intl Traveler<30days: No Traveled to known affect area: No History of Present Illness HPI 56-year-old female presents to the emergency department for evaluation of chest pain. The chest pain started last night when she was having a disagreement with her children. She said after the disagreement she went to bed thinking it would resolve but when she woke up this morning and still had chest pain she decided to come in to the emergency department to get evaluated. Patient has a history of hypertension and hyperlipidemia, but denies any history of angina or [place]. Patient states the pain is chronic in nature, not reproducible to palpation and radiates down her right arm. Patient states she is slightly short of breath. Patient denies fever, chills, malaise, nausea, vomiting, abdominal pain or lightheadedness. Patient does not have any family history of heart disease. PFSH Past Medical History Blood Disorders: No Anxiety: Yes Depression: Yes Heart Rhythm Problems: Yes (palpitations (gallops) with low k+) Cancer: No Cardiac Catheterization: Yes (2005 NEGATIVE) Cardiovascular Problems: Yes High Cholesterol: Yes Chest Pain: Yes Congestive Heart Failure: No Diabetes: No Diminished Hearing: No Endocrine: No Gastrointestinal Disorders: No GERD: Yes Genitourinary: No Headaches: Yes (MIGRAINES) Hypertension: Yes Immune Disorder: No Musculoskeletal: Yes (CHRONIC BACK PAIN) Psychiatric: Yes Reproductive: No Respiratory: No Migraines: Yes Myocardial Infarction: No ?: Not Menopausal: Yes : 5 Para: 4 Miscarriage: 0 : 1 Ovarian Cysts: Yes (13 REMOVED OR DRAINED) Past Surgical History AICD: No Appendectomy: Yes Arteriovenous Shunt: No Section: Yes (4) Cholecystectomy: Yes Coronary Artery Bypass Graft: No Eye Surgery: Yes (LASIX ON EYES 2002) Hysterectomy: Yes Insulin Pump: No Joint Replacement: No Pacemaker: No Family History Family Myocardial Infarction: Yes Social History Alcohol Use: Yes ("VERY LITTLE") Tobacco Use: Yes (1PPD FOR 30 YEARS) Substance Use: No Allergies-Medications (Allergen,Severity, Reaction): Coded Allergies: No Known Allergies (Verified , 04/10/17) Reported Meds & Prescriptions Reported Meds & Active Scripts Active Lisinopril 10 Mg Tab 10 Mg PO DAILY Reported Goodys Extra Strength Powder (Bxhjhnt-Wywztxqskurhh-Qjbdahal Powder) 260-520- 32.5 Mg Powderpack 1 Pkt PO DIRECTED PRN Coq-10 (Coenzyme Q10 (Ubidecarenone)) 30 Mg Cap 20 Mg PO BID Red Yeast Rice (Red Yeast Rice Extract) 600 Mg Cap 600 Mg PO BID Review of Systems Except as stated in HPI: all other systems reviewed are Neg Physical Exam Narrative GENERAL: Well-nourished well-developed 56-year-old female in no acute distress SKIN: Focused skin assessment warm/dry. HEAD: Atraumatic. Normocephalic. EYES: Pupils equal and round. No scleral icterus. No injection or drainage. ENT: No nasal bleeding or discharge. Mucous membranes pink and moist. NECK: Trachea midline. No JVD. CARDIOVASCULAR: Regular rate and rhythm. No murmur appreciated. RESPIRATORY: No accessory muscle use. Clear to auscultation. Breath sounds equal bilaterally. GASTROINTESTINAL: Abdomen soft, non-tender, nondistended. Hepatic and splenic margins not palpable. MUSCULOSKELETAL: No obvious deformities. No clubbing. No cyanosis. No edema. NEUROLOGICAL: Awake and alert. No obvious cranial nerve deficits. Motor grossly within normal limits. Normal speech. PSYCHIATRIC: Appropriate mood and affect; insight and judgment normal. Data Data Last Documented VS Vital Signs Date Time Temp Pulse Resp B/P (MAP) Pulse Ox O2 Delivery O2 Flow Rate FiO2 04/10/17 11:21 70 141/72 (95) 140/74 (96) 04/10/17 10:55 100 Nasal Cannula 2.00 04/10/17 10:41 12 04/10/17 09:58 99.0 Orders Orders Electrocardiogram (04/10/17 10:52) Basic Metabolic Panel (Bmp) (04/10/17 10:52) Ckmb (Isoenzyme) Profile (04/10/17 10:52) Complete Blood Count With Diff (04/10/17 10:52) Magnesium (Mg) (04/10/17 10:52) Prothrombin Time / Inr (Pt) (04/10/17 10:52) Act Partial Throm Time (Ptt) (04/10/17 10:52) Troponin I (04/10/17 10:52) Chest, Single Ap (04/10/17 10:52) Ecg Monitoring (04/10/17 10:52) Bilateral Bp Monitoring (04/10/17 10:52) Iv Access Insert/Monitor (04/10/17 10:52) Oximetry (04/10/17 10:52) Oxygen Administration (04/10/17 10:52) Sodium Chloride 0.9% Flush (Ns Flush) (04/10/17 11:00) Admit Order (Ed Use Only) (04/10/17 12:30) Labs Laboratory Tests Test 04/10/17 10:50 White Blood Count 13.4 TH/MM3 Red Blood Count 4.79 MIL/MM3 Hemoglobin 14.3 GM/DL Hematocrit 43.3 % Mean Corpuscular Volume 90.4 FL Mean Corpuscular Hemoglobin 29.8 PG Mean Corpuscular Hemoglobin Concent 33.0 % Red Cell Distribution Width 13.5 % Platelet Count 291 TH/MM3 Mean Platelet Volume 9.1 FL Neutrophils (%) (Auto) 56.7 % Lymphocytes (%) (Auto) 19.7 % Monocytes (%) (Auto) 5.5 % Eosinophils (%) (Auto) 17.7 % Basophils (%) (Auto) 0.4 % Neutrophils # (Auto) 7.6 TH/MM3 Lymphocytes # (Auto) 2.6 TH/MM3 Monocytes # (Auto) 0.7 TH/MM3 Eosinophils # (Auto) 2.4 TH/MM3 Basophils # (Auto) 0.0 TH/MM3 CBC Comment DIFF FINAL Differential Comment Prothrombin Time 10.6 SEC Prothromb Time International Ratio 1.0 RATIO Activated Partial Thromboplast Time 25.6 SEC Blood Urea Nitrogen 12 MG/DL Creatinine 0.65 MG/DL Random Glucose 83 MG/DL Calcium Level 8.3 MG/DL Magnesium Level 2.1 MG/DL Sodium Level 142 MEQ/L Potassium Level 3.6 MEQ/L Chloride Level 110 MEQ/L Carbon Dioxide Level 26.4 MEQ/L Anion Gap 6 MEQ/L Estimat Glomerular Filtration Rate 95 ML/MIN Total Creatine Kinase 53 U/L Troponin I LESS THAN 0.02 NG/ML MDM Medical Decision Making Medical Screen Exam Complete: Yes Emergency Medical Condition: Yes Medical Record Reviewed: Yes Differential Diagnosis Differential diagnoses include but are not limited to [place], PE, anxiety, angina Narrative Course 56-year-old female presents to the emergency department for evaluation of chest pain that started last night. Patient was having a disagreement with her children when the pain started. Patient to bed subsequently getting the pain would resolve but when she woke up this morning decided she needed to come into the emergency department for evaluation because the pain persisted. Patient states the pain makes her slightly short of breath and radiates down her right arm. Patient denies any fever, chills, malaise, abdominal pain, nausea, vomiting, lightheadedness or diaphoretic episodes. EKG, CBC, BMP, troponin, CK , PT/INR, magnesium, chest x-ray ordered and pending. CBC shows leukocytosis at 13.4 otherwise no acute abnormalities noted BMP shows no acute abnormalities TROP less than 0.02 CK within normal limits at 53 PT/INR shows no acute abnormalities MAG within normal limits at 2.1 EKG is sinus rhythm with heart rate 65 CXR shows no acute disease Based on patient's symptoms, clinical appearance, comorbidities, vital sign review, chest x-ray and lab results it is clinically appropriate to keep the patient in the chest pain center for 3 sets of cardiac enzymes and a stress test. Patient will be admitted to the chest pain center for further workup. Diagnosis Primary Impression: Chest pain Qualified Codes: R07.9 - Chest pain, unspecified Admitting Information Admitting Physician Requests: Haylie Sanches Apr 10, 2017 11:15
[2017-04-10 11:31] LABS: AUTOMATED NEUTROPHIL # 7.6 TH/MM3 (1.8-7.7); BASOPHIL % 0.4 % (0.0-2.0); EOSINOPHIL # 2.4 TH/MM3 (0-0.4); EOSINOPHIL % 17.7 % (0.0-4.0); HEMATOCRIT 43.3 % (35.0-46.0); HEMO FLAGS DIFF FINAL; LYMPH % 19.7 % (9.0-44.0); LYMPHOCYTE # 2.6 TH/MM3 (1.0-4.8); MEAN CELL VOLUME 90.4 FL (80.0-100.0); MEAN CORPUSCULAR HEMOGLOBIN 29.8 PG (27.0-34.0); MONO % 5.5 % (0.0-8.0); NEUT % 56.7 % (16.0-70.0); PLATELET COUNT 291 TH/MM3 (150-450); RED BLOOD COUNT 4.79 MIL/MM3 (4.00-5.30); RED CELL DISTRIBUTION WIDTH 13.5 % (11.6-17.2); WHITE BLOOD COUNT 13.4 TH/MM3 (4.0-11.0)
[2017-04-10 11:38] LABS: APTT (PATIENT) 25.6 SEC (24.3-30.1); PROTHROMBIN TIME - PATIENT 10.6 SEC (9.8-11.6)
[2017-04-10 11:53] LABS: ANION GAP 6 MEQ/L (5-15); BICARBONATE 26.4 MEQ/L (21.0-32.0); BLOOD UREA NITROGEN 12 MG/DL (7-18); CHLORIDE 110 MEQ/L (98-107); GLOMERULAR FILTRATION RATE 95 ML/MIN (>89); MAGNESIUM 2.1 MG/DL (1.5-2.5); POTASSIUM 3.6 MEQ/L (3.5-5.1); SODIUM (NA) 142 MEQ/L (136-145)
[2017-04-10 11:57] LABS: CREATINE KINASE 53 U/L (26-192)
[2017-04-10] MEDS ORDERED: ACETAMINOPHEN 500 MG CPLT PO PRN (13:00)
[2017-04-10] MEDS ORDERED: SODIUM CHLORIDE 0.9% FLUSH 10 ML FLUSH IV FLUSH PRN (13:00)
[2017-04-10] MEDS ORDERED: ONDANSETRON HCL 4 MG/2 ML VIAL IV PUSH PRN (13:00)
[2017-04-10] MEDS ORDERED: NITROGLYCERIN 0.4 MG SL 25 TABS/BTL SL PRN (13:00)
--- NOTE | 2017-04-10 13:10 | RADRPT ---
EXAM DATE/TIME: 04/10/2017 11:09 [facility] COMPARISON: CHEST SINGLE AP, January 13, 2017, 16:10. INDICATIONS : Chest pain MEDICAL HISTORY : None. Hypertension. Hypercholesterolemia. SURGICAL HISTORY : None. Appendectomy. Cholecystectomy. Cardiac cath. ENCOUNTER: Initial ACUITY: 2 days PAIN SCORE: 6/10 LOCATION: chest FINDINGS: A single view of the chest demonstrates the lungs to be symmetrically aerated without evidence of mas s, infiltrate or effusion. The cardiomediastinal contours are unremarkable. Osseous structures are intact. CONCLUSION: No acute disease. Surendra Hansen MD on April 10, 2017 at 13:08 Board Certified Radiologist. This report was verified electronically.
--- NOTE | 2017-04-10 14:52 | HHI.HP ---
HPI Primary Care Physician No Primary Care Physician Chief Complaint Chest pain History of Present Illness 56-year-old patient with history of hypertension, hyperlipidemia, and current smoker presents to emergency room for further evaluation of chest pain. Onset last evening after arguing with her kids. She proceeded to bed and was able to fall asleep. Upon awakening she was chest pain-free however within an hour she developed substernal chest heaviness with radiation to right arm. Discomfort has been constant. No associated symptoms of nausea, vomiting, dyspnea, or diaphoresis. Precipitating factors she relates to arguing with her kids. No known relieving factors, continues to have chest discomfort. Review of Systems General: No fatigue,weakness, fever, chills, recent illness, or change in appetite. Has been in her general state of health. HEENT: No BURROUGHS CV: As stated above, continues to have substernal heaviness. RESP: No SOB, cough, or sputum production GI: No nausea, vomiting, bowel changes, no dysphasia since dilation : No dysuria EXT: No lower leg edema MS: No discomfort or change in ROM NEURO: No difficulty with balance, LOC, motor/sensory deficits PSYCH: No anxiety, depression, or suicidal ideation. Reports current situation stress SKIN: No rashes, no concerning lesions Past Family Social History Allergies: Coded Allergies: No Known Allergies (Verified , 04/10/17) Past Medical History Hypertension, hyperlipidemia, SVT PREVIOUS DOCUMENTATION NOTE CARDIAC STENT-THIS IS NOT PART OF HER MEDICAL HISTORY Past Surgical History Cholecystectomy, hemorrhoidectomy Reported Medications Reported Meds & Active Scripts Active Lisinopril 10 Mg Tab 10 Mg PO DAILY Goodys Extra Strength Powder (Gzrrbuv-Qvzdttpcjdxks-Kosqqgfy Powder) 260-520- 32.5 Mg Powderpack 1 Pkt PO DIRECTED PRN Coq-10 (Coenzyme Q10 (Ubidecarenone)) 30 Mg Cap 20 Mg PO BID Red Yeast Rice (Red Yeast Rice Extract) 600 Mg Cap 600 Mg PO BID Active Ordered Medications Current Medications Medications (Trade) Dose Ordered Sig/Regina Route Start Time Stop Time Status Last Admin (NS Flush) 2 ml UNSCH PRN IV FLUSH 04/10/17 13:00 (NS Flush) 2 ml BID IV FLUSH 04/10/17 21:00 (Tylenol) 500 mg Q4H PRN PO 04/10/17 13:00 (Zofran Inj) 4 mg Q6H PRN IV PUSH 04/10/17 13:00 (Nitrostat Sl) 0.4 mg Q5M PRN SL 04/10/17 13:00 (Aspirin) 325 mg DAILY PO 04/11/17 09:00 Family History Unknown Social History Known hypertension and hyperlipidemia. No known diabetes or personal coronary artery disease. Lifelong nonsmoker, one pack/daily. Denies any alcohol or illegal drug use. Endorses sedentary lifestyle. Unemployed. Recently approved for disability. Past cardiac testing No recent stress testing 12/04/2015 EP STUDY (Dr. Mcgill)-conclusion-successful electrophysiology study, AV nodule rear-entry tachycardia, mapping and radiofrequency ablation. 12/01/2015 Echocardiogram-conclusion. No pericardial effusion. LV function sustained, EF 65%. Trivial tricuspid regurgitation. 12/11/2006 LEXISCAN-no evidence of stress-induced ischemia. Ejection fraction 75 % Physical Exam Vital Signs Vital Signs Date Time Temp Pulse Resp B/P (MAP) Pulse Ox O2 Delivery O2 Flow Rate FiO2 04/10/17 14:47 97.9 61 16 131/94 (106) 97 04/10/17 14:23 04/10/17 13:26 67 14 154/85 (108) 98 Nasal Cannula 2.00 04/10/17 13:00 66 22 161/77 (105) 99 Nasal Cannula 2.00 04/10/17 12:00 62 17 149/74 (99) 100 Nasal Cannula 2.00 04/10/17 11:21 70 141/72 (95) 140/74 (96) 04/10/17 11:00 66 18 152/73 (99) 100 Nasal Cannula 2.00 04/10/17 10:55 100 Nasal Cannula 2.00 04/10/17 10:55 Nasal Cannula 2.00 04/10/17 10:43 Nasal Cannula 2.00 04/10/17 10:41 66 12 140/74 (96) 04/10/17 09:58 99.0 78 18 172/79 (110) 98 Room Air Physical Exam GENERAL: Alert WN, WD, NAD, obese, female who appears older than stated age. HEAD: NC, AT CV: RRR, without murmur, rub, gallop, no JVD, S1-S2 no S3-S4. RESP: Clear lungs throughout bilateral, no crackles, wheeze, rhonchi, symmetrical chest rise, nonlabored, able to speak in full sentences ABD: Soft, NT, ND, no masses, positive bowel tones EXT: Pulses +24, no dependent edema MS: Normal tone 4 extremities, nontender, no obvious deformities, full range of motion NEURO: CN II through CN XII grossly intact, motor strength 5/5 PSYCH: A+O 3, pleasant affect, appropriate speech, appropriate mood and affect , insight and judgment SKIN: Normal turgor, normal texture Laboratory Laboratory Tests Test 04/10/17 10:50 04/10/17 13:50 White Blood Count 13.4 Red Blood Count 4.79 Hemoglobin 14.3 Hematocrit 43.3 Mean Corpuscular Volume 90.4 Mean Corpuscular Hemoglobin 29.8 Mean Corpuscular Hemoglobin Concent 33.0 Red Cell Distribution Width 13.5 Platelet Count 291 Mean Platelet Volume 9.1 Neutrophils (%) (Auto) 56.7 Lymphocytes (%) (Auto) 19.7 Monocytes (%) (Auto) 5.5 Eosinophils (%) (Auto) 17.7 Basophils (%) (Auto) 0.4 Neutrophils # (Auto) 7.6 Lymphocytes # (Auto) 2.6 Monocytes # (Auto) 0.7 Eosinophils # (Auto) 2.4 Basophils # (Auto) 0.0 CBC Comment DIFF FINAL Differential Comment Prothrombin Time 10.6 Prothromb Time International Ratio 1.0 Activated Partial Thromboplast Time 25.6 Blood Urea Nitrogen 12 Creatinine 0.65 Random Glucose 83 Calcium Level 8.3 Magnesium Level 2.1 Sodium Level 142 Potassium Level 3.6 Chloride Level 110 Carbon Dioxide Level 26.4 Anion Gap 6 Estimat Glomerular Filtration Rate 95 Total Creatine Kinase 53 Troponin I LESS THAN 0.02 Result Diagram: 04/10/17 1050 04/10/17 1050 Imaging Last Impressions Chest X-Ray 04/10/17 1052 Signed Impressions: Service Date/Time: March 11:09 - CONCLUSION: No acute disease. Surendra Hansen MD Course EKG Sinus rhythm, normal axis, no ST or T-segment changes Caprini VTE Risk Assessment Caprini VTE Risk Assessment: No/Low Risk (score <= 1) Caprini Risk Assessment Model Point Value = 1 Point Value = 2 Point Value = 3 Point Value = 5 Age 41-60 Minor surgery BMI > 25 kg/m2 Swollen legs Varicose veins or History of unexplained or recurrent spontaneous Oral contraceptives or hormone replacement Sepsis (< 1 month) Serious lung disease, including pneumonia (< 1 month) Abnormal pulmonary function Acute myocardial infarction Congestive heart failure (< 1 month) History of inflammatory bowel disease Medical patient at bed rest Age 61-74 Arthroscopic surgery Major open surgery (> 45 min) Laparoscopic surgery (> 45 min) Malignancy Confined to bed (> 72 hours) Immobilizing plaster cast Central venous access Age >= 75 History of VTE Family history of VTE Factor V Leiden Prothrombin [id number] Lupus anticoagulant Anticardiolipin antibodies Elevated serum homocysteine Heparin-induced thrombocytopenia Other congenital or acquired thrombophilia Stroke (< 1 month) Elective arthroplasty Hip, pelvis, or leg fracture Acute spinal cord injury (< 1 month) Prophylaxis Regimen Total Risk Factor Score Risk Level Prophylaxis Regimen 0-1 Low Early ambulation 2 Moderate Order ONE of the following: *Sequential Compression Device (SCD) *Heparin 5000 units SQ BID 3-4 Higher Order ONE of the following medications: *Heparin 5000 units SQ TID *Enoxaparin/Lovenox 40 mg SQ daily (WT < 150 kg, CrCl > 30 mL/min) *Enoxaparin/Lovenox 30 mg SQ daily (WT < 150 kg, CrCl > 10-29 mL/min) *Enoxaparin/Lovenox 30 mg SQ BID (WT < 150 kg, CrCl > 30 mL/min) AND/OR *Sequential Compression Device (SCD) 5 or more Highest Order ONE of the following medications: *Heparin 5000 units SQ TID (Preferred with Epidurals) *Enoxaparin/Lovenox 40 mg SQ daily (WT < 150 kg, CrCl > 30 mL/min) *Enoxaparin/Lovenox 30 mg SQ daily (WT < 150 kg, CrCl > 10-29 mL/min) *Enoxaparin/Lovenox 30 mg SQ BID (WT < 150 kg, CrCl > 30 mL/min) AND *Sequential Compression Device (SCD) Assessment and Plan Assessment and Plan #1 Atypical chest pain-admitted to chest pain center. Seen and evaluated by Dr. Kelvin Turk. Will complete chemical stress test this afternoon, if unremarkable will discharge later this evening. Patient agreeable to plan of care. #2 Hypertension-continue lisinopril, will provide refill lisinopril upon discharge #3 Hyperlipidemia-currently taking CoQ10 and red yeast rice, follow with PCP as previously instructed #4 Tobacco use-strongly encouraged and stressed the importance of tobacco sensation. Instructed her to quit smoking. #5 Situational stress-encouraged increase daily activity for somatic symptoms and mental well being. Etelvina Nixon Apr 10, 2017 14:52
[2017-04-10 14:56] LABS: CREATINE KINASE 51 U/L (26-192)
--- NOTE | 2017-04-10 16:59 | EKG ---
Date Performed: 04/10/2017 Time Performed: 10:16:02 PTAGE: 56 years EKG: Sinus rhythm NORMAL ECG Since PREVIOUS TRACING , no significant change noted PREVIOUS TRACIN01/13/2017 22.04 DOCTOR: Melissa Nash Interpretating Date/Time 04/10/2017 16:58:09
[2017-04-10] MEDS ORDERED: REGADENOSON INJ 0.4 MG/5 ML SYR ONE (17:03)
--- NOTE | 2017-04-10 18:28 | RADRPT ---
EXAM DATE/TIME: 04/10/2017 16:16 [facility] COMPARISON: No previous studies available for comparison. INDICATIONS : Chest pain. Angina. DOSE: 27.4 mCi Tc99m Myoview at stress. 8.5 mCi Tc99m Myoview at rest. 0.4 mg Lexiscan STRESS SYMPTOMS: Headache, dyspnea, and chest pain. EJECTION FRACTION: 66% MEDICAL HISTORY : Hypertension. SURGICAL HISTORY : section. Appendectomy. Cholecystectomy. ENCOUNTER: Initial ACUITY: 1 day PAIN SCALE: 4/10 LOCATION: Bilateral chest TECHNIQUE: The patient underwent pharmacologic stress with infusion of prescribed dose. Continuous ECG tracing was monitored during stress. Gated SPECT imaging was performed after stress and conventional SPECT i maging was performed at rest. The examination was performed on a SPECT/CT scanner, both attenuation and non-corrected datasets were reviewed. FINDINGS: DISTRIBUTION: The maximum perfused segment at stress is in the anterior wall. PERFUSION STUDY: The pattern of perfusion at stress is within normal limits. GATED STUDY: There is intact wall motion and thickening without hypokinetic or dyskinetic segments. CONCLUSION: Within normal limits. No stress-induced ischemia or abnormal wall motion demonstrated . RISK CATEGORY: Low Surendra Bazzi MD on April 10, 2017 at 18:26 Board Certified Radiologist. This report was verified electronically.
[2017-04-10] MEDS ORDERED: LISI10TA3 PO (18:35)
--- NOTE | 2017-04-10 18:36 | HHI.DCPOC ---
Discharge Care Plan Diagnosis: (1) Situational stress (2) Atypical chest pain (3) Hypertension (4) Tobacco abuse Goals to Promote Your Health * To prevent worsening of your condition and complications * To maintain your health at the optimal level Directions to Meet Your Goals Take your medications as prescribed Follow your dietary instruction Follow activity as directed Keep your appointments as scheduled Take your immunizations and boosters as scheduled If your symptoms worsen call your PCP, if no PCP go to Urgent Care Center or Emergency Room Smoking is Dangerous to Your Health. Avoid second hand smoke Call the 24-hour hour crisis hotline for domestic abuse at Etelvina Nixon Apr 10, 2017 18:36
[2017-04-10] MEDS ORDERED: SODIUM CHLORIDE 0.9% FLUSH 10 ML FLUSH IV FLUSH SCH (21:00)
[2017-04-11] MEDS ORDERED: ASPIRIN 325 MG TAB PO SCH (09:00)
--- NOTE | 2017-04-11 10:56 | TR ---
Date Performed: 04/10/2017 Time Performed: 17:08:08 DOCTOR: Yaron Daley DRUG LIST: CLINICAL HISTORY: REASON FOR TEST: REASON FOR ENDING: OBSERVATION: CONCLUSION: Lexiscan stress test was performed under standard four minute protocol. Radionuclid e was injected one minute prior to ending the test. No electrocardiographic abormalities were present to suggest ischemia. Nuclear imaging and interpretation are pending. COMMENTS:
--- NOTE | 2017-04-11 13:58 | EKG ---
Date Performed: 04/10/2017 Time Performed: 13:51:52 PTAGE: 56 years EKG: SINUS BRADYCARDIA BORDERLINE ECG PREVIOUS TRACING : 04/10/2017 10.16 Since previous tracing, no significant change noted DOCTOR: Yaron Daley Interpretating Date/Time 04/11/2017 13:57:58
== END 2017-04-10 19:54 | disposition home or self-care (01) ==
LOC: NEPC 09:57 → NEDA 12:33 → NEPGCP 14:34
PROVIDERS: ADMIT Internal Medicine Cardiovascular Disease; ATTEND Internal Medicine Cardiovascular Disease
DX: R07.89 Other chest pain (principal); I10 Essential (primary) hypertension; I47.1 Supraventricular tachycardia; E78.00 Pure hypercholesterolemia, unspecified; R06.02 Shortness of breath; R00.2 Palpitations; G43.909 Migraine, unspecified, not intractable, without status migrainosus; F43.8 Other reactions to severe stress; K21.9 Gastro-esophageal reflux disease without esophagitis; M54.9 Dorsalgia, unspecified; F17.200 Nicotine dependence, unspecified, uncomplicated
CPT/HCPCS: 71010; 78452; 80048; 82550; 83735; 84484; 85025; 85610; 85730; 93005; 93017; 99285; A9502; G0378; J2785

== ENCOUNTER 2017-07-18 21:00 | Emergency (ER) | payer MEDICARE ==
[~2017-07-18] VITALS: Ht 165.1 cm; Wt 95.0 kg
[~2017-07-18 21:00] MED LIST changes: +ASPI1POW6 PO; +COQ-30CA2 PO; -PROT40TA PO; +RED1CAP4 PO
[2017-07-18 21:17] VITALS: BP 197/93; PULSE 76; RESP 18; TEMP 97.8; O2SAT 97
[2017-07-18] MEDS ORDERED: ROSU1TAB6 PO (21:56)
[2017-07-18] MEDS ORDERED: KETOROLAC TROMETHAMINE 60 MG/2 ML (IM) VIAL IM ONE (22:00)
[2017-07-18] MEDS ORDERED: ORPHENADRINE INJ 60 MG/2 ML AMP IM ONE (22:00)
[2017-07-18] MEDS ORDERED: NORC5TAB PO (22:25)
[2017-07-18] MEDS ORDERED: CYCL10TA PO (22:25)
[2017-07-18] MEDS ORDERED: MEDR4PAK PO (22:25)
--- NOTE | 2017-07-18 22:25 | PD ---
HPI Chief Complaint: Back/ Neck Pain or Injury Time Seen by Provider: 21:23 Travel History International Travel<30 days: No Contact w/Intl Traveler<30days: No Traveled to known affect area: No History of Present Illness HPI The patient is a 36-year-old female who presents emergency department for chronic back pain with radiculopathy down the left leg as well as left knee pain. The patient states she has a 12 year history of chronic back pain that radiates down the left leg, was recently seen by pain interventional's physician , Dr. Alva. The patient recently has had left knee pain over the last week which has progressed, feels like her knee Is "popping off", notes pain when going from a sitting to standing position and occasional "clicking" of the left knee. She denies any trauma to left knee, denies any blunt trauma or falls affecting the left knee. She is able to bear weight on the left leg. The back pain is chronic, starts in mid low back, radiates down to the left gluteal area down the left leg. She denies any acute weakness, numbness, or tingling of the left lower extremity. She denies any dysuria or urinary incontinence. She has been through physical therapy 3 times for her back, her symptoms did not improve. PFSH Past Medical History Blood Disorders: No Anxiety: Yes Depression: Yes Heart Rhythm Problems: Yes (PALPATATIONS) Cancer: No Cardiac Catheterization: Yes (2005 NEGATIVE) Cardiovascular Problems: Yes High Cholesterol: Yes Chest Pain: Yes Congestive Heart Failure: No Diabetes: No Diminished Hearing: No Endocrine: No Gastrointestinal Disorders: No GERD: Yes Genitourinary: No Headaches: Yes (MIGRAINES) Hypertension: Yes Immune Disorder: No Musculoskeletal: Yes (CHRONIC BACK PAIN) Psychiatric: Yes Reproductive: No Respiratory: No Immunizations Current: No Migraines: Yes Myocardial Infarction: No Tetanus Vaccination: Unknown Influenza Vaccination: Yes ?: Not Menopausal: Yes : 5 Para: 4 Miscarriage: 0 : 1 Ovarian Cysts: Yes (13 REMOVED OR DRAINED) Past Surgical History AICD: No Appendectomy: Yes Arteriovenous Shunt: No Section: Yes (4) Cholecystectomy: Yes Coronary Artery Bypass Graft: No Eye Surgery: Yes (LASIX ON EYES 2002) Hysterectomy: Yes Insulin Pump: No Joint Replacement: No Pacemaker: No Social History Alcohol Use: Yes ("VERY LITTLE") Tobacco Use: Yes (1PPD FOR 30 YEARS) Substance Use: No Allergies-Medications (Allergen,Severity, Reaction): Coded Allergies: No Known Allergies (Verified Adverse Reaction, Unknown, 07/18/17) Reported Meds & Prescriptions Reported Meds & Active Scripts Active Lisinopril 10 Mg Tab 10 Mg PO DAILY Reported Rosuvastatin (Rosuvastatin Calcium) 10 Mg Tab 10 Mg PO HS Goodys Extra Strength Powder (Zpibwtj-Knysgmowomvwr-Heofscol Powder) 260-520- 32.5 Mg Powderpack 1 Pkt PO DIRECTED PRN Review of Systems Except as stated in HPI: all other systems reviewed are Neg General / Constitutional: No: Fever Gastrointestinal: No: Nausea, Vomiting Genitourinary: No: Dysuria, Incontinence Musculoskeletal: Positive: Pain, No: Edema Neurologic: No: Paresthesia, Sensory Disturbance Physical Exam Narrative GENERAL: Awake, alert, pleasant 56-year-old female who appears her stated age and is in no acute respiratory distress. SKIN: Focused skin assessment warm/dry. HEAD: Atraumatic. Normocephalic. EYES: No injection or drainage. MUSCULOSKELETAL: No obvious deformities. No clubbing. No cyanosis. No edema. Patient is able flex left hip and left knee to 90. Patella is midline. No tenderness of the medial, lateral, inferior, superior aspect of the left knee. Positive straight leg on the left at 30. Positive distal pulses. Back: No tenderness of the right paravertebral muscle. Minimal tenderness of the left sacroiliac and left paravertebral muscle as well as the left gluteal area. NEUROLOGICAL: Awake and alert. No obvious cranial nerve deficits. Motor grossly within normal limits. Normal speech. Sensation is symmetric on the medial, lateral, dorsal aspect of the left lower extremity. PSYCHIATRIC: Appropriate mood and affect; insight and judgment normal. Data Data Last Documented VS Vital Signs Date Time Temp Pulse Resp B/P (MAP) Pulse Ox O2 Delivery O2 Flow Rate FiO2 07/18/17 21:56 20 07/18/17 21:17 97.8 76 197/93 (127) 97 Orders Orders Ketorolac Inj (Toradol Inj) (07/18/17 22:00) Orphenadrine Inj (Norflex Inj) (07/18/17 22:00) MDM Medical Decision Making Medical Screen Exam Complete: Yes Emergency Medical Condition: Yes Medical Record Reviewed: Yes Differential Diagnosis Differential diagnosis includes sciatica, herniated disc, spinal stenosis, back pain with radiculopathy, meniscal injury, knee sprain, knee strain, knee effusion, occult fracture. Narrative Course The patient's chronic back pain with radiculopathy has been occurring for 12 years, no acute changes. She has no acute weakness or urinary incontinence. The left knee has had no trauma, she is able to bear weight, pleasant may have suffered a ligamentous strain/sprain or meniscal injury secondary to her chronic back pain and changing gait. Patient was administered Toradol and Norflex IM. She will be prescribed Flexeril, Medrol Dosepak, [place] for at home. She is advised to follow-up with her primary physician is advised that outpatient physical therapy may benefit her left knee pain and/or back pain. Diagnosis Primary Impression: Back pain with left-sided radiculopathy Additional Impression: Left knee pain Qualified Codes: M25.562 - Pain in left knee Patient Instructions: General Instructions Additional Instructions: Medications as directed. Follow-up with her primary physician, you may benefit from outpatient physical therapy. Apply ice and/or heat to the affected area as needed. Activity as tolerated. Med/Other Pt SpecificInfo: Prescription(s) given Scripts Methylprednisolone Dosepak (Medrol Dosepak) 4 Mg Dspk 4 MG PO DIRECTED, #1 DSPK 0 Refills Per Pharmacist direction Prov: Jimy Holley MD 07/18/17 Cyclobenzaprine (Flexeril) 10 Mg Tab 10 MG PO TID for Muscle Spasm for 10 Days, #30 TAB 0 Refills Prov: Jimy Holley MD 07/18/17 Hydrocodone-Acetaminophen ([place]) 5 Mg-325 Mg Tab 1 TAB PO Q6H Y for PAIN, #15 TAB 0 Refills Prov: Jimy Holley MD 07/18/17 Disposition: 01 DISCHARGE HOME Condition: Stable Jimy Holley MD Jul 18, 2017 22:25
[2017-07-18 22:27] VITALS: BP 145/86
== END 2017-07-18 22:34 | disposition home or self-care (01) ==
LOC: PHED 21:00
DX: M54.10 Radiculopathy, site unspecified (principal); M25.562 Pain in left knee; F41.9 Anxiety disorder, unspecified; F32.9 Major depressive disorder, single episode, unspecified; E78.00 Pure hypercholesterolemia, unspecified; K21.9 Gastro-esophageal reflux disease without esophagitis; I10 Essential (primary) hypertension; F17.200 Nicotine dependence, unspecified, uncomplicated; Z79.899 Other long term (current) drug therapy
CPT/HCPCS: 96372; 99284; J1885; J2360